=== PATIENT | male | born 2000 | race Caucasian/White ===

== ENCOUNTER 2024-01-16 14:22 | Emergency (ER) | payer BC, SELFPAY ==
--- NOTE | 2024-01-16 14:37 | ED.URI ---
HPI - URI/Sore Throat General Chief Complaint: Upper Respiratory Infection Stated Complaint: Cold Symptoms Time Seen by Provider: 01/16/24 14:37 Source: patient, RN notes reviewed and old records reviewed Mode of arrival: ambulatory Limitations: no limitations History of Present Illness HPI Narrative: 23-year-old male to Express Care with complaint cough for 10 days. Patient now complaining chills, congestion, sinus pressure and fever. Patient's mother is present with patient in exam room. Mother states patient has treated with Tylenol and DayQuil. patient febrile and tachycardic in triage. Patient states he is able to tolerate fluids by mouth. Patient resting comfortably in exam room, appears tired and acutely ill. Respirations even and nonlabored. Patient able to speak in complete sentences without difficulty. Related Data Home Medications Medication Instructions Recorded Confirmed sirolimus 2 mg tablet 2 mg PO DAILY 01/16/24 01/16/24 Allergies Allergy/AdvReac Type Severity Reaction Status Date / Time Sulfa (Sulfonamide Allergy Unknown Verified 01/16/24 15:06 Antibiotics) Review of Systems Review of Systems: All systems reviewed & are unremarkable except as noted in HPI and below Constitutional: Constitutional: Reports as per HPI, Reports chills and Reports fever(s) Eyes: Eyes: Reports no additional eye complaints ENT: Reports as per HPI, Reports nasal congestion and Reports sinus pressure Cardiovascular: Cardiovascular: Reports no additional cardiovascular complaints, Denies chest pain and Denies dyspnea Respiratory: Respiratory: Reports no additional respiratory complaints, Reports cough and Denies dyspnea Musculoskeletal: Musculoskeletal: Reports no additional musculoskeletal complaints Neurologic: Reports system reviewed and no additional complaints, except as documented Psychiatric: Psychiatric: Reports no additional psychiatric complaints PMFSH Comments At the time of my signature, I reviewed and agree with the nursing past medical, surgical, social, and family history. There is no relevant family history pertinent to the patient complaint. Exam Const: General: cooperative, comfortable, no acute distress, alert and well nourished Nutritional Appearance: well nourished Orientation/consciousness: patient oriented x3 Limitations: no limitations HENMT: Head: normal to inspection Ears: external ears normal and TM abnormal erythematous on the left, with fluid behind the TM on the right ( clear) and on the left ( purulent) and with loss of landmarks on the left Face/Nose/Sinus: Normal external nose present, Normal nares present, normal facial exam, No erythema and No edema Face and sinus: normal facial exam, no erythema and no edema Mouth: Yes Normal oral and palatal mucosa present Throat: posterior oropharynx abnormal erythema and postnasal drainage ( purulent) Eyes: General: appearance normal, both eyes and all related structures Neck: Neck: normal visual inspection, full ROM and no meningeal signs Chest: Chest palpation & inspection: normal inspection of the chest Resp: Effort & Inspection: normal respiratory effort and able to speak in complete sentences Auscultation: clear to auscultation bilaterally Cardio: Jugular venous distension: no JVD Rate: tachycardic Rhythm: regular rhythm Back/Spine/Pelvis: Cervical Spine: cervical ROM normal Skin: General skin exam: normal color, no rashes or lesions noted and turgor normal Neuro: General: patient oriented x3, gait normal, moves all extremities and no meningeal signs Speech: normal speech Gait exam (Neuro): Normal gait present Extrem: General: normal to inspection, full ROM and capillary refill normal Psych: Appearance: grossly normal and well kempt Course Course Emergency Course: Some parts of this dictation were generated by voice recognition software and may contain typographical and/or grammatical inaccuracies. Level of Care: Express Care Visit Vital Signs Vital signs: Vital Signs Temperature 37.7 C H 01/16/24 14:44 Pulse Rate 118 H 01/16/24 14:44 Respiratory Rate 20 01/16/24 14:44 Blood Pressure 128/74 01/16/24 14:44 Pulse Oximetry 100 01/16/24 14:44 Temperature 37.7 C H 01/16/24 14:44 Pulse Rate 118 H 01/16/24 14:44 Respiratory Rate 20 01/16/24 14:44 Blood Pressure 128/74 01/16/24 14:44 Pulse Oximetry 100 01/16/24 14:44 reviewed MDM - URI/Sore Throat MDM Narrative Medical decision making narrative: 23-year-old male to Express Care with complaint cough for 10 days. Patient now complaining chills, congestion, sinus pressure and fever. Patient's mother is present with patient in exam room. Mother states patient has treated with Tylenol and DayQuil. patient febrile and tachycardic in triage. Patient states he is able to tolerate fluids by mouth. Patient resting comfortably in exam room, appears tired and acutely ill. Respirations even and nonlabored. Patient able to speak in complete sentences without difficulty. On exam, right TM with clear fluid. The left TM erythematous, dull, purulent fluid, loss of landmarks. Posterior oropharynx erythematous with purulent postnasal drainage. Patient is sitting comfortably in exam room nontoxic in appearance. Patient appropriate for outpatient treatment and follow-up. Discharge instructions reviewed with patient, as well as provided in writing per nursing staff. The instructions also include specific and strict return/GO TO THE ER as well as f/u information. All questions have been answered, and the patient deny any further questions with discharge and discharge plan. Some parts of this dictation were generated by voice recognition software and may contain typographical and/or grammatical inaccuracies. Differential Diagnosis Differential diagnosis: Likely upper respiratory infection, croup, otitis media, sinusitis, viral infection, bronchitis, influenza and pharyngitis Discharge Plan Discharge Clinical Impression: Acute left otitis media Patient Disposition: Home, Self-Care Condition: Stable Instructions: Ear Infection (GEN) Additional Instructions: -Alternate Tylenol per package directions for fever or pain. -Use Flonase twice a day for 5 days then daily to help reduce the inflammation and dry up your sinuses. -You can also use Sudafed or Mucinex. Be sure to drink plenty of water with these medications at least 8 ounces with every dose and it is important to drink 8 to 10 glasses of water per day. Water is a natural decongestant -Eat and drink things that are easy to swallow, like tea or soup, or popsicles. -Oral rinses such as: Salt water gargles and/or may use topical anesthetic (eg. Chloraseptic spray) or lozenges to relieve dryness or throat pain). -Frequent hand washing or hand beveling machine operator is one of the best ways to prevent spread of infection. -Using a vaporizer or humidifier at night will also help thin secretions and help with coughing up phlegm. -Follow up with primary care provider in 2-3 days if condition is not improving; or seek ER visit if you have trouble breathing, cannot drink enough fluids, have muffled voice, difficulty opening your mouth, or severe swelling. Prescriptions: New amoxicillin-pot clavulanate 875-125 mg tablet 1 tablet PO Q12H Qty: 20 0RF No Action sirolimus 2 mg tablet 2 mg PO DAILY Follow-up/Referrals: PHYSICIAN,RADIATOR CLEANER [Primary Care Provider] -
[2024-01-16 14:44] VITALS: BP 128/74; PULSE 118; RESP 20; TEMP 37.7; O2SAT 100
== END 2024-01-16 15:22 | disposition home or self-care (01) ==
PROVIDERS: Emergency Provider Nurse Practitioner Family
DX: H66.92 Otitis media, unspecified, left ear (principal)
CPT/HCPCS: 99203; G0463